=== PATIENT | female | born 1970 | race Caucasian/White ===

== ENCOUNTER 2016-08-05 22:02 | Emergency (ER) | payer MEDICAID ==
[~2016-08-05] VITALS: Ht 167.6 cm; Wt 45.7 kg
[~2016-08-05 22:02] MED LIST: BENZ100C PO; CALC500T26 PO; LEVO500T33 PO; MULT1CAP19 PO; TRAM50TA2 PO
[2016-08-05 22:06] VITALS: BP 110/74
== END 2016-08-06 00:45 | disposition home or self-care (01) ==
LOC: ED 23:35
DX: S83.92XA Sprain of unspecified site of left knee, initial encounter (principal); M25.562 Pain in left knee; G89.29 Other chronic pain; X58.XXXA Exposure to other specified factors, initial encounter; Y93.89 Activity, other specified; Y92.89 Other specified places as the place of occurrence of the external cause; Y99.8 Other external cause status
CPT/HCPCS: 99284

== ENCOUNTER 2016-10-22 19:51 | Emergency (ER) | payer MEDICAID ==
[~2016-10-22] VITALS: Ht 167.6 cm; Wt 46.6 kg
[2016-10-22 19:56] VITALS: BP 109/86
[2016-10-22] MEDS ORDERED: KETOROLAC 30 MG/1 ML ONE (20:38)
[2016-10-22 20:55] LABS: HCG UR OBC PASS
[2016-10-22] MEDS ORDERED: KETOROLAC 30 MG/1 ML IM ONE (21:00)
== END 2016-10-22 21:35 | disposition home or self-care (01) ==
LOC: ED 21:15
DX: S39.012A Strain of muscle, fascia and tendon of lower back, initial encounter (principal); M62.830 Muscle spasm of back; X58.XXXA Exposure to other specified factors, initial encounter; Y93.89 Activity, other specified; Y92.89 Other specified places as the place of occurrence of the external cause; Y99.8 Other external cause status
CPT/HCPCS: 72072; 72110; 81003; 81025; 96372; 99285; J1885

== ENCOUNTER 2016-11-02 21:10 | Emergency (ER) | payer MEDICAID ==
[~2016-11-02] VITALS: Ht 167.6 cm; Wt 45.6 kg
[2016-11-02] MEDS ORDERED: ONDANSETRON 2MG/ML, 2ML IVPush ONE (23:30)
[2016-11-02] MEDS ORDERED: SODIUM CHLORIDE FLUSH 10ML SYR IVF ONE (23:30)
[2016-11-02] MEDS ORDERED: SODIUM CHLORIDE 0.9% 1,000ML IV ONE (23:30)
[2016-11-02] MEDS ORDERED: MORPHINE SULFATE 4 MG/ML, 1ML IVPush PRN (23:30)
[2016-11-02] MEDS ORDERED: MORPHINE SULFATE 4 MG/ML, 1ML ONE (23:31)
[2016-11-02] MEDS ORDERED: ONDANSETRON 2MG/ML, 2ML ONE (23:32)
[2016-11-03 00:16] LABS: ASPARTATE AMINO TRANSFERASE 11 U/L (15-37); BLOOD UREA NITROGEN 12 mg/dL (7-18)
[2016-11-03 01:07] VITALS: BP 90/60
== END 2016-11-03 01:11 | disposition home or self-care (01) ==
LOC: ED 23:28
DX: R10.84 Generalized abdominal pain (principal); R11.2 Nausea with vomiting, unspecified
CPT/HCPCS: 36415; 74176; 80053; 81003; 83690; 84703; 85025; 93005; 96361; 96374; 96375; 99285; J2405; J7030

== ENCOUNTER 2016-11-25 23:55 | Emergency (ER) | payer MEDICAID ==
[~2016-11-25] VITALS: Ht 167.6 cm; Wt 45.9 kg
[~2016-11-25 23:55] MED LIST changes: -CALC500T26 PO; +CALC500T93 PO; -LEVO500T33 PO; +LEVO500T47 PO
[2016-11-25 23:58] VITALS: BP 115/69
[2016-11-26] MEDS ORDERED: IBUPROFEN 200 MG TABLET ONE (00:43)
[2016-11-26] MEDS ORDERED: IBUPROFEN 200 MG TABLET PO ONE (01:00)
== END 2016-11-26 02:41 | disposition home or self-care (01) ==
LOC: ED 11-26 00:12
DX: S46.911A Strain of unspecified muscle, fascia and tendon at shoulder and upper arm level, right arm, initial encounter (principal); X50.1XXA Overexertion from prolonged static or awkward postures, initial encounter; Y93.89 Activity, other specified; Y92.027 Garden or yard of mobile home as the place of occurrence of the external cause; Y99.8 Other external cause status

== ENCOUNTER 2016-11-28 13:29 | Emergency (ER) | payer MEDICAID ==
[~2016-11-28] VITALS: Ht 167.6 cm; Wt 44.4 kg
[2016-11-28] MEDS ORDERED: IBUPROFEN 200 MG TABLET PO ONE (14:00)
[2016-11-28] MEDS ORDERED: IBUPROFEN 200 MG TABLET ONE (14:07)
[2016-11-28 16:08] VITALS: BP 121/76
== END 2016-11-28 16:13 | disposition home or self-care (01) ==
LOC: ED 14:37
DX: M77.01 Medial epicondylitis, right elbow (principal)
CPT/HCPCS: 99284

== ENCOUNTER 2017-01-20 01:32 | Emergency (ER) | payer MEDICAID ==
[~2017-01-20] VITALS: Ht 167.6 cm; Wt 50.0 kg
[2017-01-20 01:36] VITALS: BP 110/69
[2017-01-20] MEDS ORDERED: ACETAMINOPHEN 325 MG TABLET ONE (02:43)
[2017-01-20] MEDS ORDERED: ACETAMINOPHEN 325 MG TABLET PO ONE (03:00)
== END 2017-01-20 03:49 | disposition home or self-care (01) ==
LOC: ED 02:42
DX: S96.912A Strain of unspecified muscle and tendon at ankle and foot level, left foot, initial encounter (principal); W01.0XXA Fall on same level from slipping, tripping and stumbling without subsequent striking against object, initial encounter; Y93.89 Activity, other specified; Y92.89 Other specified places as the place of occurrence of the external cause; Y99.8 Other external cause status
CPT/HCPCS: 99284

== ENCOUNTER 2017-02-12 16:58 | Emergency (ER) | payer MEDICAID ==
[~2017-02-12] VITALS: Ht 167.6 cm; Wt 46.8 kg
[2017-02-12 17:06] VITALS: BP 137/79
== END 2017-02-12 18:24 | disposition home or self-care (01) ==
LOC: ED 18:18
DX: M25.521 Pain in right elbow (principal); J00 Acute nasopharyngitis [common cold]
CPT/HCPCS: 71020; 93005; 99284

== ENCOUNTER 2017-03-22 01:00 | Emergency (ER) | payer MEDICAID ==
[~2017-03-22] VITALS: Ht 167.6 cm; Wt 45.4 kg
[2017-03-22 01:01] VITALS: BP 112/73
[2017-03-22] MEDS ORDERED: DEXAMETHASONE 4 MG TABLET PO STA (01:52)
[2017-03-22] MEDS ORDERED: DEXAMETHASONE 4 MG TABLET ONE (01:56)
== END 2017-03-22 02:27 | disposition home or self-care (01) ==
LOC: ED 02:09
DX: J20.8 Acute bronchitis due to other specified organisms (principal); J02.8 Acute pharyngitis due to other specified organisms; F17.210 Nicotine dependence, cigarettes, uncomplicated
CPT/HCPCS: 71020; 93005; 99284

== ENCOUNTER 2017-04-19 14:43 | Emergency (ER) | payer MEDICAID ==
[~2017-04-19] VITALS: Ht 167.6 cm; Wt 45.7 kg
[2017-04-19] MEDS ORDERED: SODIUM CHLORIDE FLUSH 10ML SYR IVF ONE (15:00)
[2017-04-19] MEDS ORDERED: SODIUM CHLORIDE 0.9% 1,000ML IVBOLUS ONE (15:00)
[2017-04-19 15:21] LABS: BASOPHILS # (AUTO) 0.06 x10^3/uL (0-0.1); BASOPHILS % (AUTO) 1 % (0-1); EOSINOPHILS # (AUTO) 0.09 x10^3/uL (0-0.4); EOSINOPHILS % (AUTO) 1 % (1-7); LYMPHOCYTES # (AUTO) 2.29 x10^3/uL (1-3.4); LYMPHOCYTES % (AUTO) 26 % (22-44); MD NO; MEAN CORPUSCULAR HEMOGLOBIN 34.6 pg (27.0-34.8); MEAN CORPUSCULAR HGB CONC 34.3 g/dL (32.4-35.8); MEAN CORPUSCULAR VOLUME 100.8 fL (80-100); MEAN PLATELET VOLUME 8.4 fL (7.4-10.4); MONOCYTES # (AUTO) 0.58 x10^3/uL (0.2-0.8); MONOCYTES % (AUTO) 7 % (2-9); NEUTROPHILS # (AUTO) 5.95 x10^3/uL (1.8-6.8); NEUTROPHILS % (AUTO) 66 % (42-75); PLATELET COUNT 270 x10^3/uL (130-400); RED BLOOD COUNT 4.29 x10^6/uL (3.82-5.3); RED CELL DISTRIBUTION WIDTH 13.6 % (9.6-15.2)
[2017-04-19 15:31] LABS: ALANINE AMINOTRANSFERASE 21 U/L (12-78); ALBUMIN 3.9 g/dL (3.4-5.0); ANION GAP 5 mmol/L (5-15); CALCIUM 8.9 mg/dL (8.5-10.1); CHLORIDE 107 mmol/L (98-107)
[2017-04-19 15:33] LABS: ALKALINE PHOSPHATASE 88 U/L (45-117); BILIRUBIN,TOTAL 0.9 mg/dL (0.2-1.0); CREATININE 0.62 mg/dL (0.55-1.02); TOTAL PROTEIN 7.1 g/dL (6.4-8.2)
[2017-04-19 17:20] VITALS: BP 117/68
== END 2017-04-19 17:22 | disposition home or self-care (01) ==
LOC: ED 15:30
DX: N94.89 Other specified conditions associated with female genital organs and menstrual cycle (principal); F17.200 Nicotine dependence, unspecified, uncomplicated; I88.9 Nonspecific lymphadenitis, unspecified
CPT/HCPCS: 36415; 80053; 85025; 99284

== ENCOUNTER 2017-04-21 13:29 | Emergency (ER) | payer MEDICAID ==
[~2017-04-21] VITALS: Ht 167.6 cm; Wt 45.5 kg
[2017-04-21 13:31] VITALS: BP 137/84
[2017-04-21 14:56] LABS: RAPID INFLUENZA A Negative (Negative); RAPID INFLUENZA B Negative (Negative)
== END 2017-04-21 15:34 | disposition home or self-care (01) ==
LOC: ED 15:09
DX: B34.9 Viral infection, unspecified (principal)
CPT/HCPCS: 71046; 87081; 87400; 87880; 99285

== ENCOUNTER 2017-05-20 14:34 | Emergency (ER) | payer MEDICAID ==
[~2017-05-20] VITALS: Ht 167.6 cm; Wt 46.8 kg
[2017-05-20 14:41] VITALS: BP 125/79
== END 2017-05-20 17:57 | disposition home or self-care (01) ==
LOC: ED 16:58
DX: J02.8 Acute pharyngitis due to other specified organisms (principal); F17.210 Nicotine dependence, cigarettes, uncomplicated
CPT/HCPCS: 71046; 99284

== ENCOUNTER 2017-07-05 11:41 | Emergency (ER) | payer MEDICAID ==
[~2017-07-05] VITALS: Ht 167.6 cm; Wt 44.8 kg
[2017-07-05 13:33] LABS: BASOPHILS # (AUTO) 0.07 x10^3/uL (0-0.1); BASOPHILS % (AUTO) 1 % (0-1); EOSINOPHILS % (AUTO) 1 % (1-7); LYMPHOCYTES # (AUTO) 2.04 x10^3/uL (1-3.4); LYMPHOCYTES % (AUTO) 21 % (22-44); MD NO; MEAN CORPUSCULAR HEMOGLOBIN 33.7 pg (27.0-34.8); MEAN CORPUSCULAR HGB CONC 33.6 g/dL (32.4-35.8); MEAN CORPUSCULAR VOLUME 100.3 fL (80-100); MEAN PLATELET VOLUME 8.7 fL (7.4-10.4); MONOCYTES # (AUTO) 0.55 x10^3/uL (0.2-0.8); MONOCYTES % (AUTO) 6 % (2-9); NEUTROPHILS # (AUTO) 6.76 x10^3/uL (1.8-6.8); NEUTROPHILS % (AUTO) 71 % (42-75); PLATELET COUNT 304 x10^3/uL (130-400); RED BLOOD COUNT 4.44 x10^6/uL (3.82-5.3); RED CELL DISTRIBUTION WIDTH 12.8 % (9.6-15.2)
[2017-07-05 13:46] LABS: ALBUMIN 3.8 g/dL (3.4-5.0); ANION GAP 5 mmol/L (5-15); CALCIUM 9.2 mg/dL (8.5-10.1); CHLORIDE 111 mmol/L (98-107); CREATININE 0.65 mg/dL (0.55-1.02)
[2017-07-05 13:51] LABS: TROPONIN I < 0.015 ng/mL (0.000-0.045)
[2017-07-05 14:47] VITALS: BP 115/64
== END 2017-07-05 14:50 | disposition home or self-care (01) ==
LOC: ED 13:48
DX: R07.2 Precordial pain (principal); F17.200 Nicotine dependence, unspecified, uncomplicated
CPT/HCPCS: 36415; 71045; 80048; 82040; 84484; 85025; 93005; 99285

== ENCOUNTER 2017-07-10 20:22 | Emergency (ER) | payer MEDICAID ==
[~2017-07-10] VITALS: Ht 167.6 cm; Wt 46.7 kg
[2017-07-10 20:25] VITALS: BP 125/61
== END 2017-07-10 21:47 | disposition home or self-care (01) ==
LOC: ED 21:01
DX: S69.81XA Other specified injuries of right wrist, hand and finger(s), initial encounter (principal); F17.210 Nicotine dependence, cigarettes, uncomplicated; X58.XXXA Exposure to other specified factors, initial encounter; Y93.89 Activity, other specified; Y92.098 Other place in other non-institutional residence as the place of occurrence of the external cause
CPT/HCPCS: 99284

== ENCOUNTER 2018-02-08 15:45 | Emergency (ER) | payer MEDICAID ==
[~2018-02-08] VITALS: Ht 167.6 cm; Wt 45.7 kg
[2018-02-08] MEDS ORDERED: SODIUM CHLORIDE FLUSH 10ML SYR IVF ONE (16:30)
[2018-02-08] MEDS ORDERED: MORPHINE SULFATE 4 MG/ML, 1ML IVPush PRN (16:30)
[2018-02-08] MEDS ORDERED: ONDANSETRON 2MG/ML, 2ML IVPush ONE (16:30)
[2018-02-08] MEDS ORDERED: ONDANSETRON 2MG/ML, 2ML ONE (16:45)
[2018-02-08] MEDS ORDERED: MORPHINE SULFATE 4 MG/ML, 1ML ONE (16:45)
[2018-02-08 16:48] LABS: BASOPHILS # (AUTO) 0.04 x10^3/uL (0-0.1); BASOPHILS % (AUTO) 0 % (0-1); EOSINOPHILS # (AUTO) 0.04 x10^3/uL (0-0.4); EOSINOPHILS % (AUTO) 0 % (1-7); LYMPHOCYTES # (AUTO) 2.28 x10^3/uL (1-3.4); LYMPHOCYTES % (AUTO) 13 % (22-44); MD NO; MEAN CORPUSCULAR HEMOGLOBIN 34.2 pg (27.0-34.8); MEAN CORPUSCULAR HGB CONC 34.1 g/dL (32.4-35.8); MEAN CORPUSCULAR VOLUME 100.2 fL (80-100); MEAN PLATELET VOLUME 8.3 fL (7.4-10.4); MONOCYTES # (AUTO) 0.99 x10^3/uL (0.2-0.8); MONOCYTES % (AUTO) 6 % (2-9); NEUTROPHILS # (AUTO) 14.01 x10^3/uL (1.8-6.8); NEUTROPHILS % (AUTO) 81 % (42-75); PLATELET COUNT 335 x10^3/uL (130-400); RED BLOOD COUNT 4.28 x10^6/uL (3.82-5.3); RED CELL DISTRIBUTION WIDTH 12.7 % (9.6-15.2)
[2018-02-08 16:49] LABS: MICROSCOPIC AUTO
[2018-02-08 16:53] LABS: CULTURE INDICATED? YES
[2018-02-08 17:00] LABS: ALBUMIN 4.1 g/dL (3.4-5.0); ANION GAP 9 mmol/L (5-15); CALCIUM 9.2 mg/dL (8.5-10.1); CHLORIDE 106 mmol/L (98-107); CREATININE 0.68 mg/dL (0.55-1.02)
[2018-02-08] MEDS ORDERED: CEFTRIAXONE PMX 1GM/50ML 50 ML IVPB ONE (18:30)
[2018-02-08] MEDS ORDERED: CEFTRIAXONE PMX 1GM/50ML 50 ML ONE (18:46)
[2018-02-08 20:05] VITALS: BP 100/56
== END 2018-02-08 20:09 | disposition home or self-care (01) ==
LOC: ED 19:38
DX: N10 Acute pyelonephritis (principal); D72.829 Elevated white blood cell count, unspecified
CPT/HCPCS: 36415; 80048; 81001; 82040; 84703; 85025; 87040; 87077; 87086; 96365; 96375; 99284; J0696; J2405; 87186

== ENCOUNTER 2018-02-16 14:22 | Emergency (ER) | payer MEDICAID ==
[~2018-02-16] VITALS: Ht 167.6 cm; Wt 45.7 kg
[2018-02-16 14:29] VITALS: BP 108/74
[2018-02-16 15:25] LABS: BASOPHILS # (AUTO) 0.05 x10^3/uL (0-0.1); BASOPHILS % (AUTO) 0 % (0-1); EOSINOPHILS # (AUTO) 0.06 x10^3/uL (0-0.4); EOSINOPHILS % (AUTO) 0 % (1-7); LYMPHOCYTES # (AUTO) 1.84 x10^3/uL (1-3.4); LYMPHOCYTES % (AUTO) 15 % (22-44); MD NO; MEAN CORPUSCULAR HEMOGLOBIN 33.8 pg (27.0-34.8); MEAN CORPUSCULAR VOLUME 99.3 fL (80-100); MEAN PLATELET VOLUME 8.3 fL (7.4-10.4); MONOCYTES % (AUTO) 6 % (2-9); NEUTROPHILS % (AUTO) 79 % (42-75); PLATELET COUNT 323 x10^3/uL (130-400); RED BLOOD COUNT 4.44 x10^6/uL (3.82-5.3); RED CELL DISTRIBUTION WIDTH 12.8 % (9.6-15.2)
[2018-02-16 15:32] LABS: ALBUMIN 3.8 g/dL (3.4-5.0); ANION GAP 6 mmol/L (5-15); CALCIUM 9.9 mg/dL (8.5-10.1); CHLORIDE 106 mmol/L (98-107); CREATININE 0.67 mg/dL (0.55-1.02)
[2018-02-16 15:49] LABS: MICROSCOPIC AUTO
== END 2018-02-16 16:08 | disposition home or self-care (01) ==
LOC: ED 16:00
DX: J00 Acute nasopharyngitis [common cold] (principal); F17.200 Nicotine dependence, unspecified, uncomplicated
CPT/HCPCS: 36415; 71046; 80048; 81001; 82040; 85025; 99285

== ENCOUNTER 2018-03-26 18:17 | Emergency (ER) | payer MEDICAID ==
[~2018-03-26] VITALS: Ht 167.6 cm; Wt 47.6 kg
[2018-03-26 19:06] LABS: ANION GAP 3 mmol/L (5-15); CALCIUM 8.7 mg/dL (8.5-10.1); CHLORIDE 106 mmol/L (98-107)
[2018-03-26 19:10] LABS: ALANINE AMINOTRANSFERASE 24 U/L (12-78); ALKALINE PHOSPHATASE 129 U/L (45-117); BILIRUBIN,TOTAL 0.4 mg/dL (0.2-1.0); CREATININE 0.89 mg/dL (0.55-1.02)
[2018-03-26 19:29] VITALS: BP 96/45
[2018-03-26 19:36] LABS: MEAN CORPUSCULAR HEMOGLOBIN 34.3 pg (27.0-34.8); MEAN CORPUSCULAR HGB CONC 34.6 g/dL (32.4-35.8); MEAN CORPUSCULAR VOLUME 99.3 fL (80-100); MEAN PLATELET VOLUME 9.4 fL (7.4-10.4); PLATELET COUNT 276 x10^3/uL (130-400); RED BLOOD COUNT 4.13 x10^6/uL (3.82-5.3); RED CELL DISTRIBUTION WIDTH 12.8 % (9.6-15.2)
[2018-03-26 19:43] LABS: MICROSCOPIC NOT IND
[2018-03-26 19:48] LABS: CULTURE INDICATED? NO
[2018-03-26 19:52] LABS: BASOPHILS # (AUTO) 0.06 x10^3/uL (0-0.1); BASOPHILS % (AUTO) 1 % (0-1); EOSINOPHILS # (AUTO) 0.15 x10^3/uL (0-0.4); EOSINOPHILS % (AUTO) 2 % (1-7); LYMPHOCYTES # (AUTO) 3.38 x10^3/uL (1-3.4); LYMPHOCYTES % (AUTO) 43 % (22-44); MONOCYTES # (AUTO) 0.46 x10^3/uL (0.2-0.8); MONOCYTES % (AUTO) 6 % (2-9); NEUTROPHILS % (AUTO) 49 % (42-75)
[2018-03-26 19:53] LABS: MD SCAN
== END 2018-03-26 20:18 | disposition home or self-care (01) ==
LOC: ED 19:18
DX: M54.6 Pain in thoracic spine (principal); F17.210 Nicotine dependence, cigarettes, uncomplicated
CPT/HCPCS: 36415; 80053; 81003; 83690; 85025; 99283

== ENCOUNTER 2018-04-01 17:13 | Emergency (ER) | payer MEDICAID ==
[~2018-04-01] VITALS: Ht 167.6 cm; Wt 47.0 kg
[2018-04-01 17:24] VITALS: BP 125/79
[2018-04-01] MEDS ORDERED: IBUPROFEN 200 MG TABLET PO ONE (17:30)
--- NOTE | 2018-04-01 18:05 | NUR ---
PT EDUCATED ON DISCHARGE INSTRUCTIONS, VERBALLY ACKNOWLEDGED UNDERSTANDING. PT AMBULATES WITH STEADY GAIT. PT SITUATION IMPROVED AT THIS TIME.
== END 2018-04-01 18:06 | disposition home or self-care (01) ==
LOC: ED 17:54
DX: J02.8 Acute pharyngitis due to other specified organisms (principal); B97.89 Other viral agents as the cause of diseases classified elsewhere
CPT/HCPCS: 87081; 87880; 99283

== ENCOUNTER 2018-04-03 14:20 | Emergency (ER) | payer MEDICAID ==
[~2018-04-03] VITALS: Ht 167.6 cm; Wt 45.6 kg
[2018-04-03 15:01] LABS: RAPID INFLUENZA A Negative (Negative); RAPID INFLUENZA B Negative (Negative)
[2018-04-03] MEDS ORDERED: DEXAMETHASONE 4 MG TABLET ONE (15:24)
[2018-04-03] MEDS ORDERED: DEXAMETHASONE 4 MG/ML, 1ML PO ONE (15:30)
--- NOTE | 2018-04-03 15:38 | NUR ---
Patient/Caregiver given discharge instructions and they have confirmed that they understand the instructions. Patient ambulatory with steady gait.
--- NOTE | 2018-04-03 15:38 | NUR ---
Patient/Caregiver given discharge instructions and they have confirmed that they understand the instructions. Patient ambulatory with steady gait. Pt. has her prescription page. vss.
[2018-04-03 15:40] VITALS: BP 125/56
== END 2018-04-03 15:40 | disposition home or self-care (01) ==
LOC: ED 15:34
DX: J98.01 Acute bronchospasm (principal); J00 Acute nasopharyngitis [common cold]; J02.8 Acute pharyngitis due to other specified organisms; F17.200 Nicotine dependence, unspecified, uncomplicated; Z87.01 Personal history of pneumonia (recurrent)
CPT/HCPCS: 71046; 87400; 99284; J1100

== ENCOUNTER 2018-04-19 13:06 | Emergency (ER) | payer MEDICAID ==
[~2018-04-19] VITALS: Ht 167.6 cm; Wt 46.6 kg
[2018-04-19 13:11] VITALS: BP 114/75
== END 2018-04-19 14:15 | disposition home or self-care (01) ==
LOC: ED 14:07
DX: J20.9 Acute bronchitis, unspecified (principal); J02.9 Acute pharyngitis, unspecified; F17.200 Nicotine dependence, unspecified, uncomplicated
CPT/HCPCS: 93005; 99283

== ENCOUNTER 2018-07-11 21:52 | Emergency (ER) | payer MEDICAID ==
[~2018-07-11] VITALS: Ht 167.6 cm; Wt 49.0 kg
[2018-07-11 22:03] VITALS: BP 118/82
== END 2018-07-11 23:08 | disposition home or self-care (01) ==
LOC: ED 22:50
DX: S90.32XA Contusion of left foot, initial encounter (principal); W31.89XA Contact with other specified machinery, initial encounter; Y93.89 Activity, other specified; Y92.009 Unspecified place in unspecified non-institutional (private) residence as the place of occurrence of the external cause; Y99.8 Other external cause status
CPT/HCPCS: 99283

== ENCOUNTER 2018-08-06 18:12 | Emergency (ER) | payer MEDICAID ==
[2018-08-06 18:15] VITALS: BP 123/57
== END 2018-08-06 19:43 | disposition home or self-care (01) ==
LOC: ED 19:42
DX: S60.221A Contusion of right hand, initial encounter (principal); F17.200 Nicotine dependence, unspecified, uncomplicated; W23.0XXA Caught, crushed, jammed, or pinched between moving objects, initial encounter; Y93.89 Activity, other specified; Y92.410 Unspecified street and highway as the place of occurrence of the external cause; Y99.8 Other external cause status
CPT/HCPCS: 99283

== ENCOUNTER 2018-11-08 21:25 | Emergency (ER) | payer MEDICAID ==
[~2018-11-08] VITALS: Ht 167.6 cm; Wt 46.9 kg
[2018-11-08 22:51] VITALS: BP 110/61
== END 2018-11-08 22:53 | disposition home or self-care (01) ==
LOC: ED 21:53
DX: S39.012A Strain of muscle, fascia and tendon of lower back, initial encounter (principal); F17.200 Nicotine dependence, unspecified, uncomplicated; W18.2XXA Fall in (into) shower or empty bathtub, initial encounter; Y93.89 Activity, other specified; Y92.89 Other specified places as the place of occurrence of the external cause; Y99.8 Other external cause status
CPT/HCPCS: 72072; 96372; 99283; J1885

== ENCOUNTER 2018-12-08 17:27 | Emergency (ER) | payer MEDICAID ==
[~2018-12-08] VITALS: Ht 167.6 cm; Wt 45.5 kg
[2018-12-08 17:52] VITALS: BP 110/67
--- NOTE | 2018-12-08 18:09 | NUR ---
PT HERE WITH C/O SORE THROAT, COUGH, AND RUNNY NOSE. PT STATES X 3 DAYS, DENIES MEDICAL HX.
[2018-12-08] MEDS ORDERED: DEXAMETHASONE 4 MG TABLET ONE (18:16)
[2018-12-08] MEDS ORDERED: DEXAMETHASONE 4 MG TABLET PO ONE (18:30)
--- NOTE | 2018-12-08 19:15 | NUR ---
Patient/Caregiver given discharge instructions and they have confirmed that they understand the instructions. Patient ambulatory with steady gait.
== END 2018-12-08 19:17 | disposition home or self-care (01) ==
LOC: ED 19:11
DX: J02.9 Acute pharyngitis, unspecified (principal); R06.00 Dyspnea, unspecified; F17.200 Nicotine dependence, unspecified, uncomplicated; Z72.9 Problem related to lifestyle, unspecified
CPT/HCPCS: 71046; 87081; 87880; 99284

== ENCOUNTER 2019-03-02 12:23 | Emergency (ER) ==
[~2019-03-02] VITALS: Ht 167.6 cm; Wt 44.5 kg
[2019-03-02 14:17] VITALS: BP 128/60
--- NOTE | 2019-03-02 14:17 | NUR ---
Patient given discharge instructions and they have confirmed that they understand the instructions. Patient ambulatory with steady gait.
== END 2019-03-02 14:18 | disposition home or self-care (01) ==
LOC: ED 14:10
DX: B34.9 Viral infection, unspecified (principal); F17.200 Nicotine dependence, unspecified, uncomplicated; Z72.9 Problem related to lifestyle, unspecified; Z87.09 Personal history of other diseases of the respiratory system
CPT/HCPCS: 93005; 99283

== ENCOUNTER 2019-04-04 21:01 | Emergency (ER) | payer MEDICAID ==
[~2019-04-04] VITALS: Ht 167.6 cm; Wt 46.3 kg
[2019-04-04 21:15] VITALS: BP 143/65
[2019-04-04] MEDS ORDERED: DEXAMETHASONE 4 MG TABLET ONE (21:34)
--- NOTE | 2019-04-04 21:36 | NUR ---
PT MEDICATED PER MAR
[2019-04-04 21:58] LABS: RAPID INFLUENZA A Negative (Negative); RAPID INFLUENZA B Negative (Negative)
[2019-04-04] MEDS ORDERED: DEXAMETHASONE 4 MG TABLET PO ONE (22:00)
== END 2019-04-04 22:18 | disposition home or self-care (01) ==
LOC: ED 22:06
DX: J06.9 Acute upper respiratory infection, unspecified (principal); H69.83 Other specified disorders of Eustachian tube, bilateral; F17.210 Nicotine dependence, cigarettes, uncomplicated
CPT/HCPCS: 87081; 87400; 87880; 99283

== ENCOUNTER 2019-08-11 12:51 | Emergency (ER) | payer SELFPAY ==
[~2019-08-11] VITALS: Ht 167.6 cm; Wt 45.0 kg
--- NOTE | 2019-08-11 13:36 | NUR ---
PT STATES THAT SHE IS HERE TODAY BECAUSE SHE WOKE UP THIS AM WITH SORE THROAT AND COUGH. SHE SAYS SHE WORKS AT A [employer]ORE AND GOES "IN AND OUT FROM THE [place] TO OUTSIDE" AND THINKS THAT "MAYBE THAT IS WHAT IS IRRITATING MY THROAT". PT DENIES FEVERS OR TRAVEL. PT IS A SMOKER AND HAS A CHRONIC COUGH. PT PLACED ON MONITOR. WILL CONTINUE TO MONITOR.
[2019-08-11 14:37] VITALS: BP 118/76
--- NOTE | 2019-08-11 15:06 | NUR ---
Pr resting in room, no complaints at this. Provided with po fluid per request.
--- NOTE | 2019-08-11 15:14 | NUR ---
Strep/covid test completed by NERISSA PINON
== END 2019-08-11 16:51 | disposition home or self-care (01) ==
LOC: ED 14:09
DX: J02.8 Acute pharyngitis due to other specified organisms (principal); Z20.828 Contact with and (suspected) exposure to other viral communicable diseases; R05 Cough; B97.89 Other viral agents as the cause of diseases classified elsewhere; R07.89 Other chest pain
CPT/HCPCS: 87081; 87880; 99283; U0001

== ENCOUNTER 2019-09-24 16:56 | Emergency (ER) | payer SELFPAY ==
[~2019-09-24] VITALS: Ht 167.6 cm; Wt 41.8 kg
--- NOTE | 2019-09-24 18:23 | NUR ---
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
[2019-09-24 19:53] VITALS: BP 117/68
--- NOTE | 2019-09-24 20:21 | NUR ---
Patient given discharge instructions and they have confirmed that they understand the instructions. Patient ambulatory with steady gait.
== END 2019-09-24 20:33 ==
LOC: ED 20:00
DX: S00.83XA Contusion of other part of head, initial encounter (principal); Y93.89 Activity, other specified; Y04.8XXA Assault by other bodily force, initial encounter; Y92.009 Unspecified place in unspecified non-institutional (private) residence as the place of occurrence of the external cause; Y99.8 Other external cause status
CPT/HCPCS: 70450; 70486; 99285

== ENCOUNTER 2020-01-12 13:23 | Emergency (ER) | payer MEDICAID ==
[~2020-01-12] VITALS: Ht 167.6 cm; Wt 41.9 kg
[2020-01-12] MEDS ORDERED: LIDOCAINE-MPF 1%, 5ML ONE ×2 (16:55→17:04)
[2020-01-12] MEDS ORDERED: AMOXICILLIN 500 MG CAPSULE PO STA (16:57)
[2020-01-12] MEDS ORDERED: OXYcodone/APAP 5/325MG TABLET PO ONE (17:00)
[2020-01-12] MEDS ORDERED: LIDOCAINE-MPF 1%, 5ML INFIL ONE (17:00)
[2020-01-12] MEDS ORDERED: AMOXICILLIN 500 MG CAPSULE ONE (17:16)
[2020-01-12] MEDS ORDERED: OXYcodone/APAP 5/325MG TABLET ONE (17:16)
[2020-01-12 17:24] VITALS: BP 113/58
== END 2020-01-12 17:26 | disposition home or self-care (01) ==
LOC: ED 15:25
DX: K02.9 Dental caries, unspecified (principal)
CPT/HCPCS: 64400; 99284

== ENCOUNTER 2020-01-17 17:41 | Emergency (ER) | payer MEDICAID ==
[~2020-01-17] VITALS: Ht 167.6 cm; Wt 41.8 kg
[2020-01-17 17:47] VITALS: BP 104/55
--- NOTE | 2020-01-17 19:05 | NUR ---
pt to room from lobby
[2020-01-17] MEDS ORDERED: HYDROcodone/APAP 5/325 TABLET ONE (19:27)
[2020-01-17] MEDS ORDERED: HYDROcodone/APAP 5/325 TABLET PO ONE (19:30)
== END 2020-01-17 20:35 | disposition home or self-care (01) ==
LOC: ED 19:00
DX: S62.356A Nondisplaced fracture of shaft of fifth metacarpal bone, right hand, initial encounter for closed fracture (principal); W18.30XA Fall on same level, unspecified, initial encounter; Y93.89 Activity, other specified; Y92.009 Unspecified place in unspecified non-institutional (private) residence as the place of occurrence of the external cause; Y99.8 Other external cause status
CPT/HCPCS: 29125; 99284

== ENCOUNTER 2020-01-21 22:25 | Emergency (ER) | payer MEDICAID ==
[~2020-01-21] VITALS: Ht 167.6 cm; Wt 42.8 kg
[2020-01-21 22:38] VITALS: BP 114/72
--- NOTE | 2020-01-21 23:38 | NUR ---
Assisted EDMD with splint placement.
== END 2020-01-21 23:55 | disposition home or self-care (01) ==
LOC: ED 23:23
DX: S62.347A Nondisplaced fracture of base of fifth metacarpal bone, left hand, initial encounter for closed fracture (principal); F17.210 Nicotine dependence, cigarettes, uncomplicated; X58.XXXA Exposure to other specified factors, initial encounter; Y93.89 Activity, other specified; Y92.098 Other place in other non-institutional residence as the place of occurrence of the external cause; Y99.8 Other external cause status
CPT/HCPCS: 29125; 99283; 99406

== ENCOUNTER 2020-01-26 12:17 | Day surgery (SDC) | payer MEDICAID ==
[~2020-01-26] VITALS: Ht 167.6 cm; Wt 41.0 kg
[~2020-01-26 12:17] MED LIST changes: +BUPIVACAINE/PF 0.5% ONE; +LIDOCAINE-MPF 1%, 5ML ONE
[2020-01-26] MEDS ORDERED: BUPIVACAINE/PF 0.5% ONE (12:33)
[2020-01-26 12:52] VITALS: BP 121/82
[2020-01-26] MEDS ORDERED: CHLORHEXIDINE 15 ML UDC MM ONE (13:00)
[2020-01-26] MEDS ORDERED: LACTATED RINGERS 1,000 ML IV SCH ×2 (13:00)
[2020-01-26] MEDS ORDERED: FENTANYL PF 100 MCG/2ML ONE ×2 (13:13→14:07)
[2020-01-26] MEDS ORDERED: MIDAZOLAM 1 MG/ML, 2ML ONE (13:13)
[2020-01-26] MEDS ORDERED: ONDANSETRON 2MG/ML, 2ML ONE (13:17)
[2020-01-26] MEDS ORDERED: PROPOFOL 10 MG/ML, 20ML ONE (13:17)
[2020-01-26] MEDS ORDERED: CEFAZOLIN 1,000 MG ONE (13:17)
[2020-01-26] MEDS ORDERED: DEXAMETHASONE 4 MG/ML, 1ML ONE (13:17)
[2020-01-26] MEDS ORDERED: DIAZEPAM 5 MG/ML, 2ML IVPush PRN (14:00)
[2020-01-26] MEDS ORDERED: ACETAMINOPHEN 325 MG TABLET PO PRN (14:00)
[2020-01-26] MEDS ORDERED: LABETALOL 5MG/ML, 20ML IV PRN (14:00)
[2020-01-26] MEDS ORDERED: PROMETHAZINE 25 MG/ML, 1ML IV PRN (14:00)
[2020-01-26] MEDS ORDERED: KETOROLAC 30 MG/1 ML IV PRN (14:00)
[2020-01-26] MEDS ORDERED: ALBUTEROL SULFATE 2.5 MG/3 ML NPPB PRN (14:00)
[2020-01-26] MEDS ORDERED: hydrALAzine 20 MG/ML, 1ML IV PRN (14:00)
[2020-01-26] MEDS ORDERED: OXYcodone 5 MG/5 ML ORAL.SOL UDC PO PRN (14:00)
[2020-01-26] MEDS ORDERED: HYDROmorphone 2 MG/ML, 1ML IVPush PRN (14:00)
[2020-01-26] MEDS ORDERED: MEPERIDINE/PF 25MG/0.5ML IVPush PRN (14:00)
[2020-01-26] MEDS ORDERED: ACETAMINOPHEN 650 MG/20.3 ML UDC ONE (14:07)
[2020-01-26] MEDS ORDERED: OXYcodone 5 MG/5 ML ORAL.SOL UDC ONE (14:07)
[2020-01-26] MEDS ORDERED: KETOROLAC 30 MG/1 ML ONE (14:07)
[2020-01-26] MEDS: FENTANYL PF 100 MCG/2ML IV PRN ×2 (14:08→14:15)
== END 2020-01-26 15:35 | disposition home or self-care (01) ==
LOC: OUT 12:17
PROVIDERS: ATTEND Orthopaedic Surgery
DX: S62.327A Displaced fracture of shaft of fifth metacarpal bone, left hand, initial encounter for closed fracture (principal); F17.210 Nicotine dependence, cigarettes, uncomplicated; X58.XXXA Exposure to other specified factors, initial encounter; Y93.89 Activity, other specified; Y92.89 Other specified places as the place of occurrence of the external cause; Y99.8 Other external cause status; Z20.828 Contact with and (suspected) exposure to other viral communicable diseases; Z72.89 Other problems related to lifestyle
CPT/HCPCS: 26615; 73120; 76000; 81025; 87635; C1776; J0690; J1100; J1885; J2250; J2405; J2704; J3010; J7120

== ENCOUNTER 2020-02-29 14:56 | Emergency (ER) | payer MEDICAID ==
[~2020-02-29] VITALS: Ht 167.6 cm; Wt 43.1 kg
[~2020-02-29 14:56] MED LIST changes: -BUPIVACAINE/PF 0.5% ONE; -LIDOCAINE-MPF 1%, 5ML ONE
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
--- NOTE | 2020-02-29 19:21 | NUR ---
REPORT TO ADOLPH CORDON
--- NOTE | 2020-02-29 19:25 | NUR ---
REPORT RECIEVED FROM BRAVO LARA. ASSUMED CARE
[2020-02-29 19:49] VITALS: BP 112/67
== END 2020-02-29 19:50 | disposition home or self-care (01) ==
LOC: ED 18:37
DX: B34.9 Viral infection, unspecified (principal); Z20.828 Contact with and (suspected) exposure to other viral communicable diseases; M79.10 Myalgia, unspecified site; F17.200 Nicotine dependence, unspecified, uncomplicated
CPT/HCPCS: 71045; 87635; 99284

== ENCOUNTER 2020-05-02 15:17 | Emergency (ER) | payer MEDICAID ==
[~2020-05-02] VITALS: Ht 167.6 cm; Wt 50.0 kg
--- NOTE | 2020-05-02 17:04 | NUR ---
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
--- NOTE | 2020-05-02 18:49 | NUR ---
BREAK RN: CHART UP FOR RECHECK BY ERP. PT. RESTING ON GURNEY WITH NO DISTRESS NOTED. RESPIRATIONS VISIBLE AND NON-LABORED.
[2020-05-02] MEDS ORDERED: KETOROLAC 30 MG/1 ML IM ONE (19:30)
[2020-05-02] MEDS ORDERED: KETOROLAC 30 MG/1 ML ONE (19:48)
[2020-05-02 19:52] VITALS: BP 101/56
== END 2020-05-02 20:08 | disposition home or self-care (01) ==
LOC: ED 17:37
DX: J06.9 Acute upper respiratory infection, unspecified (principal); Z20.822 Contact with and (suspected) exposure to COVID-19; J02.8 Acute pharyngitis due to other specified organisms; B34.9 Viral infection, unspecified; J01.00 Acute maxillary sinusitis, unspecified; F17.290 Nicotine dependence, other tobacco product, uncomplicated
CPT/HCPCS: 71045; 87635; 96372; 99284; J1885

== ENCOUNTER 2020-06-09 12:07 | Emergency (ER) | payer MEDICAID ==
[~2020-06-09] VITALS: Ht 167.6 cm; Wt 42.4 kg
--- NOTE | 2020-06-09 13:26 | NUR ---
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
[2020-06-09 16:00] VITALS: BP 127/73
== END 2020-06-09 16:03 | disposition home or self-care (01) ==
LOC: ED 12:31
DX: J06.9 Acute upper respiratory infection, unspecified (principal); Z20.822 Contact with and (suspected) exposure to COVID-19; B34.9 Viral infection, unspecified; R06.02 Shortness of breath; R05 Cough; R09.81 Nasal congestion; M79.10 Myalgia, unspecified site
CPT/HCPCS: 71045; 99284; U0003

== ENCOUNTER 2020-08-10 21:30 | Emergency (ER) | payer MEDICAID ==
[~2020-08-10] VITALS: Ht 167.6 cm; Wt 44.6 kg
--- NOTE | 2020-08-10 22:23 | NUR ---
this RN introduced self to pt, pt in room with 2 sons, pt a/ox4, all needs in reach, call light in reach, bed in low position with side rails up and wheel locks engaged.
--- NOTE | 2020-08-10 23:06 | NUR ---
pts ankle wraped with miguel a wrap, crutches given and fitted for pts height and pt taught how to properly use cruthces
[2020-08-10 23:38] VITALS: BP 123/62
== END 2020-08-10 23:45 | disposition home or self-care (01) ==
LOC: ED 23:00
DX: S93.492A Sprain of other ligament of left ankle, initial encounter (principal); W01.0XXA Fall on same level from slipping, tripping and stumbling without subsequent striking against object, initial encounter; F17.200 Nicotine dependence, unspecified, uncomplicated; Y93.89 Activity, other specified; Y92.89 Other specified places as the place of occurrence of the external cause; Y99.8 Other external cause status
CPT/HCPCS: 11730; 11740; 99284